=== PATIENT | female | born 1965 | race Caucasian/White ===

== ENCOUNTER → 2017-12-11 08:36 | Outpatient (CLI) | payer BC, SELFPAY ==
[2017-12-11 12:09] LABS: Absolute Lymphocyte Count 2.13 X10^3/ul (0.83-4.51); Absolute Neutrophil Count 4.8 X10^3/uL (2.0-7.7); Basophil# 0.04 X10^3/uL; Basophil% 0.5 % (0-1); Eosinophil# 0.14 X10^3/uL; Eosinophils% 1.9 % (0-5); Hematocrit 45.3 % (37-47); Hemoglobin 14.6 g/dl (12.0-15.0); Lymphocyte # 2.13 X10^3/ul (4.0); Lymphocyte % 28.2 % (19-41); Mean Corp Hgb Conc 32.2 g/gl (32-36); Mean Corpuscular Hgb 29.5 pg (27.0-32.0); Mean Corpuscular Volume 91.5 fL (81-99); Mean Platelet Vol. 10.8 fl (6.2-12.0); Monocyte# 0.45 X10^3/uL; Neutrophil # 4.78 X10^3/uL (2.7-7.7); Neutrophil % 63.3 % (47-70); Platelet Count 238 K/mm3 (150-450); RBC Distribution Width CV 13.4 % (11.6-14.6); RBC Distribution Width SD 44.4 fl (35.1-43.9); Red Blood Count 4.95 M/mm3 (4.2-5.4); White Blood Count 7.6 K/mm3 (4.4-11.0)
[2017-12-11 12:16] LABS: POSITIVE COUNT NO; POSITIVE DIFFERENTIAL NO; POSITIVE MORPHOLOGY NO
[2017-12-11 12:41] LABS: AST(SGOT) 14 U/L (15-37); Alanine Aminotransfer ALT/SGPT 39 U/L (13-56); Albumin, Serum 3.8 g/dL (3.2-5.0); Alkaline Phosphatase 122 U/L (45-117); Anion Gap 8 (5-15); BUN 13 mg/dL (7-18); BUN/Creat Ratio 18.2 RATIO (10-20); Calcium,Total 8.9 mg/dL (8.5-10.1); Chloride 104 mmol/L (98-107); Cholesterol 167 mg/dL (200); Creatinine, Serum 0.71 mg/dL (0.55-1.02); EST Glomerular Filtration Rate 91 mL/min (>60); Est Glom Filt Rate - Afr Amer 110 mL/min (>60); Globulin 3.8 g/dL (2.2-4.2); Glucose 97 mg/dL (74-106); High Density Lipoprotein 46 mg/dL; Potassium 4.2 mmol/L (3.5-5.1); Protein, Total 7.6 g/dL (6.4-8.2); Sodium Level 140 mmol/L (136-145); Thyroid Stim Hormone (TSH) 1.71 uIU/mL (0.358-3.74); Triglycerides 69 mg/dL; Very Low Density Lipoprotein 14 mg/dL (5-40)
== END ==
PROVIDERS: Family Provider Family Medicine; PCP Family Medicine; Visit Provider Family Medicine
DX: E78.5 Hyperlipidemia, unspecified (principal); E66.9 Obesity, unspecified
CPT/HCPCS: 36415; 80053; 80061; 84443; 85025

== ENCOUNTER → 2018-04-27 15:57 | Outpatient (CLI) | payer BC, SELFPAY | PROVIDERS: Family Provider Family Medicine; PCP Family Medicine; Visit Provider Family Medicine | DX: Z12.31 Encounter for screening mammogram for malignant neoplasm of breast (principal) | CPT/HCPCS: 77063; 77067 ==

== ENCOUNTER → 2019-03-22 08:15 | Outpatient (CLI) | payer BC, SELFPAY ==
[2019-03-22 12:50] LABS: AST(SGOT) 24 U/L (15-37); Absolute Lymphocyte Count 2.22 X10^3/ul (0.83-4.51); Absolute Neutrophil Count 4.9 X10^3/uL (2.0-7.7); Alanine Aminotransfer ALT/SGPT 45 U/L (13-56); Albumin, Serum 3.7 g/dL (3.2-5.0); Alkaline Phosphatase 138 U/L (45-117); Anion Gap 7 (5-15); BUN 13 mg/dL (7-18); BUN/Creat Ratio 16.5 RATIO (10-20); Basophil# 0.04 X10^3/uL; Basophil% 0.5 % (0-1); Calcium,Total 9.1 mg/dL (8.5-10.1); Chloride 105 mmol/L (98-107); Cholesterol 176 mg/dL (200); Creatinine, Serum 0.79 mg/dL (0.55-1.02); EST Glomerular Filtration Rate 81 mL/min (>60); Eosinophil# 0.16 X10^3/uL; Est Glom Filt Rate - Afr Amer 98 mL/min (>60); Globulin 3.7 g/dL (2.2-4.2); Glucose 104 mg/dL (74-106); Hematocrit 46.4 % (37-47); Hemoglobin 15.1 g/dl (12.0-15.0); High Density Lipoprotein 50 mg/dL; Lymphocyte # 2.22 X10^3/ul (4.0); Lymphocyte % 28.3 % (19-41); Mean Corp Hgb Conc 32.5 g/gl (32-36); Mean Corpuscular Hgb 29.1 pg (27.0-32.0); Mean Corpuscular Volume 89.4 fL (81-99); Mean Platelet Vol. 11.1 fl (6.2-12.0); Monocyte# 0.51 X10^3/uL; Monocyte% 6.5 % (0-10); Neutrophil # 4.89 X10^3/uL (2.7-7.7); Neutrophil % 62.4 % (47-70); Platelet Count 248 K/mm3 (150-450); Potassium 4.1 mmol/L (3.5-5.1); Protein, Total 7.4 g/dL (6.4-8.2); RBC Distribution Width CV 13.4 % (11.6-14.6); RBC Distribution Width SD 44.2 fl (35.1-43.9); Red Blood Count 5.19 M/mm3 (4.2-5.4); Sodium Level 138 mmol/L (136-145); Thyroid Stim Hormone (TSH) 1.86 uIU/mL (0.358-3.74); Triglycerides 76 mg/dL; Very Low Density Lipoprotein 15 mg/dL (5-40); White Blood Count 7.8 K/mm3 (4.4-11.0)
[2019-03-22 12:51] LABS: POSITIVE COUNT NO; POSITIVE DIFFERENTIAL NO; POSITIVE MORPHOLOGY NO
== END ==
PROVIDERS: PCP Family Medicine; Visit Provider Family Medicine
DX: Z00.00 Encounter for general adult medical examination without abnormal findings (principal); E78.5 Hyperlipidemia, unspecified; R53.83 Other fatigue
CPT/HCPCS: 36415; 80053; 80061; 84443; 85025

== ENCOUNTER → 2019-04-28 15:47 | Outpatient (CLI) | payer BC, SELFPAY ==
--- NOTE | 2019-04-28 15:50 | BI_ITS ---
MAMMOGRAPHY - BILATERAL SCREENING 3-D TOMOSYNTHESIS REASON FOR EXAM: Female, 53 years old. Bilateral Screening 3-D tomosynthesis PERTINENT HISTORY: Paternal grandmother and maternal aunt with breast cancer.. TECHNIQUE: 2-D mammograms and 3-D Tomosynthesis of the breast (s) were performed. CAD was performed. COMPARISON: 04/27/2018, 03/21/2017 FINDINGS: The breast composition is composed of scattered fibroglandular density. Stable postbiopsy change on the right side. Scattered benign calcifications are seen. No dense spiculated masses or suspicious microcalcifications are identified. No architectural distortion is identified. There is no skin thickening or retraction. There has been no significant change since the prior study. BI/SCREEN MAMM (CAD) W/JOSE BILAT IMPRESSION: No mammographic signs of malignancy. Routine yearly mammograms recommended. ASSESSMENT CATEGORY: BIRADS Category 2: Benign. A letter regarding these results will be sent to the patient by the facility within 30 days. FOLLOW UP RECOMMENDATION: Yearly follow up mammogram recommended. (A) Approximately 10% of breast cancers are not detected by mammography. A normal mammogram should not delay biopsy of a clinically suspicious abnormality. Electronically Signed: Jose Miguel Finnegan MD at 14:07 EDT Tel [phone], Service support ,
== END ==
PROVIDERS: Family Provider Family Medicine; PCP Family Medicine; Referring Provider Family Medicine; Visit Provider Family Medicine
DX: Z12.31 Encounter for screening mammogram for malignant neoplasm of breast (principal); Z80.3 Family history of malignant neoplasm of breast
CPT/HCPCS: 77063; 77067

== ENCOUNTER → 2020-05-03 15:46 | Outpatient (CLI) | payer BC, SELFPAY ==
--- NOTE | 2020-05-03 15:56 | BI_ITS ---
MAMMOGRAPHY - BILATERAL SCREENING REASON FOR EXAM: Female, 54 years old. Routine annual screening examination. PERTINENT HISTORY: Grandmother with breast cancer. Aunt with breast cancer. Prior right stereotactic breast biopsy and left excisional breast biopsy. TECHNIQUE: Digital bilateral breast jose (3D mammographic acquisition) in the CC and MLO projections. 2-D mediolateral oblique (MLO) and craniocaudad (CC) views of both breasts were obtained. CAD: Full Field Digital Mammography with Computer Added Detection was performed. COMPARISON: Comparison is made with prior study dated 04/28/2019 and 04/27/2018. FINDINGS: Breast Composition: There are scattered areas of fibroglandular density. There are no dominant masses or suspicious calcifications. Stable benign-appearing bilateral axillary lymph nodes. A tissue clip marker is seen in the central medial portion of the right breast. No other significant abnormalities are identified. There has been no significant change since the prior study. BI/SCREEN MAMM (CAD) W/JOSE BILAT IMPRESSION: Stable bilateral screening mammogram. Yearly follow-up mammogram recommended. (A) ASSESSMENT CATEGORY: BIRADS Category 2: Benign. A letter regarding these results will be sent to the patient by the facility within 30 days. Approximately 10% of breast cancers are not detected by mammography. A normal mammogram should not delay biopsy of a clinically suspicious abnormality. [id number] Electronically Signed: Sumit Butler, at 8:07 EDT , Service support ,
== END ==
PROVIDERS: PCP Family Medicine; Referring Provider Family Medicine; Visit Provider Family Medicine
DX: Z12.31 Encounter for screening mammogram for malignant neoplasm of breast (principal); Z80.3 Family history of malignant neoplasm of breast
CPT/HCPCS: 77063; 77067

== ENCOUNTER → 2021-05-11 15:26 | Outpatient (CLI) | payer BC, SELFPAY ==
--- NOTE | 2021-05-11 15:30 | BI_ITS ---
MAMMOGRAPHY - BILATERAL SCREENING REASON FOR EXAM: Female, 55 years old. Routine annual screening examination. PERTINENT HISTORY: Grandmother with breast cancer. Aunt with breast cancer. Prior right stereotactic breast biopsy. TECHNIQUE: Digital bilateral breast jose (3D mammographic acquisition) in the CC and MLO projections. 2-D mediolateral oblique (MLO) and craniocaudad (CC) views of both breasts were obtained. CAD: Full Field Digital Mammography with Computer Added Detection was performed. COMPARISON: Comparison is made with prior study 05/03/2020 and 04/28/2019. FINDINGS: Breast Composition: There are scattered areas of fibroglandular density. There are no dominant masses or suspicious calcifications. A tissue clip marker is once again seen in the central medial portion of the right breast. Stable benign-appearing right axillary lymph nodes. No other significant abnormalities are identified. There has been no significant change since the prior study. BI/SCRN MAMM (CAD)W/JOSE BILAT IMPRESSION: Stable bilateral screening mammogram. Yearly follow-up mammogram recommended. (A) ASSESSMENT CATEGORY: BIRADS Category 2: Benign. A letter regarding these results will be sent to the patient by the facility within 30 days. Approximately 10% of breast cancers are not detected by mammography. A normal mammogram should not delay biopsy of a clinically suspicious abnormality. [id number] Electronically Signed: Sumit Butler MD at 8:12 EDT , Service support ,
== END ==
PROVIDERS: PCP Family Medicine; Referring Provider Family Medicine; Visit Provider Family Medicine
DX: Z12.31 Encounter for screening mammogram for malignant neoplasm of breast (principal)
CPT/HCPCS: 77063; 77067

== ENCOUNTER → 2022-05-27 | Outpatient (CLI) | payer BC, SELFPAY ==
[2022-05-27 10:09] LABS: Absolute Lymphocyte Count 2.32 X10^3/uL (0.83-4.51); Absolute Neutrophil Count 4.6 X10^3/uL (2.0-7.7); Basophil# 0.05 X10^3/uL; Basophil% 0.7 % (0-1); Eosinophil# 0.15 X10^3/uL; Hematocrit 47.1 % (37-47); Hemoglobin 15.5 g/dL (12.0-15.0); Lymphocyte # 2.32 X10^3/ul (0.83-4.51); Lymphocyte % 30.5 % (19-41); Mean Corp Hgb Conc 32.9 g/dL (32-36); Mean Corpuscular Volume 91.1 fL (81-99); Mean Platelet Vol. 10.6 fl (6.2-12.0); Monocyte# 0.47 X10^3/uL; Monocyte% 6.2 % (0-10); NRBC Flagged by Analyzer 0 % (0-5); Neutrophil % 60.3 % (47-70); Platelet Count 228 K/mm3 (150-450); RBC Distribution Width CV 13.1 % (11.6-14.6); RBC Distribution Width SD 43.8 fl (35.1-43.9); Red Blood Count 5.17 M/mm3 (4.2-5.4); White Blood Count 7.6 K/mm3 (4.4-11.0)
[2022-05-27 11:17] LABS: ALB/GLOB Ratio 1.1 RATIO (0.9-2.4); AST(SGOT) 17 U/L (15-37); Alanine Aminotransfer ALT/SGPT 36 U/L (13-56); Albumin, Serum 3.8 g/dL (3.2-5.0); Alkaline Phosphatase 112 U/L (45-117); Anion Gap 9 (5-15); BUN 11 mg/dL (7-18); BUN/Creat Ratio 14.5 RATIO (10-20); Calcium,Total 9.3 mg/dL (8.5-10.1); Chloride 104 mmol/L (98-107); Cholesterol 173 mg/dL (200); Creatinine, Serum 0.76 mg/dL (0.55-1.02); EST Glomerular Filtration Rate 83 mL/min (>60); Est Glom Filt Rate - Afr Amer 101 mL/min (>60); Globulin 3.6 g/dL (2.2-4.2); Glucose 109 mg/dL (74-106); High Density Lipoprotein 50 mg/dL; Potassium 3.5 mmol/L (3.5-5.1); Protein, Total 7.4 g/dL (6.4-8.2); Sodium Level 139 mmol/L (136-145); Thyroid Stim Hormone (TSH) 2.27 uIU/mL (0.358-3.74); Triglycerides 66 mg/dL; Very Low Density Lipoprotein 13 mg/dL (5-40)
== END | disposition home or self-care (01) ==
LOC: MTLAB 07:49
PROVIDERS: PCP Family Medicine; Referring Provider Family Medicine; Visit Provider Family Medicine
DX: Z00.00 Encounter for general adult medical examination without abnormal findings (principal); R53.83 Other fatigue
CPT/HCPCS: 36415; 80053; 80061; 84443; 85025

== ENCOUNTER → 2022-05-30 | Outpatient (CLI) | payer BC, SELFPAY ==
--- NOTE | 2022-05-30 15:35 | BI_ITS ---
MAMMOGRAPHY - BILATERAL SCREENING 3-D TOMOSYNTHESIS REASON FOR EXAM: Female, 56 years old. SCREENING PERTINENT HISTORY: No significant family history. TECHNIQUE: 2-D mammograms and 3-D Tomosynthesis of the breast (s) were performed. CAD was performed. COMPARISON: 05/11/2021 FINDINGS: The breast composition is heterogeneously dense that can obscure small breast masses. Scattered benign calcifications are seen. No dense spiculated masses or suspicious microcalcifications are identified. No architectural distortion is identified. There is no skin thickening or retraction. There has been no significant change since the prior study. BI/SCRN MAMM (CAD)W/JOSE BILAT IMPRESSION: No mammographic signs of malignancy. Routine yearly mammograms recommended. ASSESSMENT CATEGORY: BIRADS Category 1: Negative. A letter regarding these results will be sent to the patient by the facility within 30 days. FOLLOW UP RECOMMENDATION: Yearly follow up mammogram recommended. (A) Approximately 10% of breast cancers are not detected by mammography. A normal mammogram should not delay biopsy of a clinically suspicious abnormality. Electronically Signed: Brando Craig MD at 16:22 EDT ,
== END | disposition home or self-care (01) ==
LOC: OPBI 15:34
PROVIDERS: PCP Family Medicine; Visit Provider Family Medicine
DX: Z12.31 Encounter for screening mammogram for malignant neoplasm of breast (principal)
CPT/HCPCS: 77063; 77067

== ENCOUNTER → 2023-06-05 | Outpatient (CLI) | payer BC, SELFPAY ==
--- NOTE | 2023-06-05 15:46 | BI_ITS ---
MAMMOGRAPHY - BILATERAL SCREENING REASON FOR EXAM: Female, 57 years old. Routine annual screening examination. PERTINENT HISTORY: Grandmother with breast cancer. Aunt with breast cancer. History of prior right stereotactic and excisional breast biopsies. TECHNIQUE: Digital bilateral breast jose (3D mammographic acquisition) in the CC and MLO projections. 2-D mediolateral oblique (MLO) and craniocaudad (CC) views of both breasts were obtained. CAD: Full Field Digital Mammography with Computer Added Detection was performed. COMPARISON: Comparison is made with prior study dated May 30, 2022 and May 11, 2021. FINDINGS: Breast Composition: There are scattered areas of fibroglandular density. There are no dominant masses or suspicious calcifications. Stable small benign-appearing bilateral axillary lymph nodes. A tissue clip marker is once again seen in the central medial aspect of the right breast. No other significant abnormalities are identified. There has been no significant change since the prior study. BI/SCRN MAMM (CAD)W/JOSE BILAT IMPRESSION: Stable bilateral screening mammogram. Yearly follow-up mammogram recommended. (A) ASSESSMENT CATEGORY: BIRADS Category 2: Benign. A letter regarding these results will be sent to the patient by the facility within 30 days. Approximately 10% of breast cancers are not detected by mammography. A normal mammogram should not delay biopsy of a clinically suspicious abnormality. [id number] Electronically Signed: Sumit Butler MD at 8:53 EDT ,
== END | disposition home or self-care (01) ==
LOC: OPBI 15:46
PROVIDERS: PCP Family Medicine; Referring Provider Family Medicine; Visit Provider Family Medicine
DX: Z12.31 Encounter for screening mammogram for malignant neoplasm of breast (principal)
CPT/HCPCS: 77063; 77067

== ENCOUNTER → 2023-09-29 | Outpatient (CLI) | payer BC, SELFPAY ==
[2023-09-29 12:18] LABS: Absolute Lymphocyte Count 2.53 X10^3/uL (0.83-4.51); Absolute Neutrophil Count 4.8 X10^3/uL (2.0-7.7); Basophil# 0.05 X10^3/uL; Basophil% 0.6 % (0-1); Eosinophil# 0.17 X10^3/uL; Eosinophils% 2.1 % (0-5); Hematocrit 47.1 % (37-47); Hemoglobin 14.9 g/dL (12.0-15.0); Lymphocyte # 2.53 X10^3/ul (0.83-4.51); Lymphocyte % 31.4 % (19-41); Mean Corp Hgb Conc 31.6 g/dL (32-36); Mean Corpuscular Hgb 29.5 pg (27.0-32.0); Mean Corpuscular Volume 93.3 fL (81-99); Mean Platelet Vol. 10.9 fl (6.2-12.0); Monocyte# 0.53 X10^3/uL; Monocyte% 6.6 % (0-10); NRBC Flagged by Analyzer 0 % (0-5); Neutrophil # 4.76 X10^3/uL (2.7-7.7); Neutrophil % 59.2 % (47-70); Platelet Count 245 K/mm3 (150-450); Red Blood Count 5.05 M/mm3 (4.2-5.4); White Blood Count 8.1 K/mm3 (4.4-11.0)
[2023-09-29 13:14] LABS: ALB/GLOB Ratio 1.1 RATIO (0.9-2.4); AST(SGOT) 21 U/L (15-37); Alanine Aminotransfer ALT/SGPT 28 U/L (13-56); Albumin, Serum 3.8 g/dL (3.2-5.0); Alkaline Phosphatase 117 U/L (45-117); Anion Gap 5 (5-15); BUN 11 mg/dL (7-18); BUN/Creat Ratio 16.6 RATIO (10-20); Calcium,Total 9.6 mg/dL (8.5-10.1); Chloride 105 mmol/L (98-107); Creatinine, Serum 0.66 mg/dL (0.55-1.02); EST Glomerular Filtration Rate 97 mL/min (>60); Est Glom Filt Rate - Afr Amer 117 mL/min (>60); Globulin 3.5 g/dL (2.2-4.2); Glucose 103 mg/dL (74-106); Protein, Total 7.3 g/dL (6.4-8.2); Sodium Level 138 mmol/L (136-145)
== END | disposition home or self-care (01) ==
LOC: BFHLAB 08:59
PROVIDERS: PCP Family Medicine; Visit Provider Family Medicine
DX: I10 Essential (primary) hypertension (principal)
CPT/HCPCS: 36415; 80053; 85025

== ENCOUNTER 2024-01-19 15:30 | Outpatient (RCR) | payer BC, SELFPAY ==
--- NOTE | 2023-11-19 15:09 | HP.OTEVAL ---
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 Date of Evaluation: 11/19/23 Occupational Therapist: VENKATESH Salas/Ras, CHT Subjective Subjective: This 58 year old female was see for OT eval with dx of right first carpometacarpal joint osteoarthritis, right thumb metacarpophlangeal joint instability and right thumb first carpometacarpal joint osteoarthritis- pt states symptom started about 1.5 years with injections without help- pt decided to have sx. DOS was on 10/07/2023 for a right CMC arthroplasty with tendon transfer and MCP Joint arthrodesis. pt states she has been limited with all ADLs and IADls due to being right hand dominate. pt states she would like to return to her PLOF. 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 pt states she would like to use her hand again to do all her ADls and IADls. ADLs Comments: pt right handed using left hand for all her ADLs and IADLS Pain righ t: Current Pain Intensity: 5 Pain Intensity Range: 3 and 7 ROM Wrist: right 40/25 left 65/60 CMC: right NT left 10 MP: right NT left 55 IP: right 10 left 60 Radial Abduction: right NT left NT Palmar Abduction: right NT left 45 Opposition: Kapandji opposition scale right NT left 10 ROM Comments: will test right CMC in 1 week MCP joint had arthrodesis Strength Medical Translator: right NT left 30# Lateral Pinch: right NT left 6# Tripod Pinch: right NT left 8# Sensation Sensation Comments: deneis Quick DASH-Disab of Arm,Shoulder& Hand Quick DASH Score: 65.0000 Goals Goal:100% adherence to protocol: Yes Comment: Dr. Pittman CMC arthroplasty guidelines Goal:Daily scar massage when approriate: Yes Goal:ROM equal to unaffected hand: Yes Comment: right wrist and IPJ / right MPJ is fused Goal:Medical Translator/Pinch strength at least 75% of unaffected hand: Yes Goal:No pain with affected hand use: Yes Goal:Full use of affected hand in daily activities including work: Yes Rehabilitation General Assessment: pt arrives s/p 6 weeks and 1 days s/p from a right first carpometacarpal joint arthroplasty with trapezium excision and ligament reconstruction and tendon interposition with FCR autograft and transfer. CMC arthroplasty with MCP joint arthrodesis. pt has surgical cast removed today and is in need of custom orthosis to provide support and protection while soft tissue structures are healing. Rehabilitation Potential: Good Anticipated Interventions Anticipated Interventions: A/AAROM/PROM, Strengthening, Scar Care, Triggerpoint Release, Desensitization, Sensory Retraining, Modalities, Orthoses, Joint Protection/Energy Conservation, Fine Motor Coord/Roland, Education re assistive Equipment, Education re Diagnosis and Home Program Visit Plan Frequency: 1x/Week Duration: 6 Weeks General Plan: s/p week 6 begin wrist ROM exercise and IP ROM Fabricate thumb spica orthosis- keep IPJ free Position wrist in 15* extension Maintain Neutral radiaoulnar deviation Place thumb in comfortable position of about 40*-50* palmar abduction keeping fingers free -encourage finger ROM short arch wrist ROM ( MPJ with fusion watch for any lateral stress on MPJ) Week 6-8 supported cmc with IP ROM use of comfort cool day tasks but orthosis at night and heavy tasks week 7-8 initiate CMC motion with wrist ROM and light strength of machinery cleaner and UB Week 10 Begin light isometric strengthening exercises 2x/day within pain tolerance Practice gripping abound objects of various circumferences in various positions with small orthosis for MCPJ in place Week 12 use hand-based orthosis only for high-demand activities Week 16 d/c use of orthosis if MCPJ is stable at 0* or greater in resting position (NO Hyperextension) TEXT: Thank you for the opportunity to evaluate your patient. For Medicare and Medicare HMO plans, please review the plan of care and approve it. It will need to be FAXED BACK to us at [phone] for Medicare purposes. Please let me know if there are questions or concerns regarding this plan of care. Physician Signature: Date:
--- NOTE | 2023-12-16 16:16 | HP.OTREVAL ---
Re-Evaluation Intro: RENA Peace, It has been my pleasure to treat JEANINE ROA over the last 5 visits for unilateral primary osteoarthritis 1st carpometacarpi join-. Please see the progress note below for an update on the occupational therapy plan of care! Subjective Subjective: pt arrives to session 10 weeks s/p from CMC arthroplasty with MP fusion pt states she is out of brace 90% of the time pt states still challenged with bilateral hand skills pt is left handed- pt is using right hand as tolerated as she is left handed. Objective Objective/Function: right ROM CMC flex 8* MP NT IP 25* right wrist 50/60 right customer operations associate strength 20# right lateral pinch 3# pt continues to struggle with skin sensitivity so therapist is hands off as to not cause pt to pass out... Pt BP likes to drop with pain or discomfort pt is working and is using left hand as much as rafita. pt is right hand dominate. pt continues to guarded with use to avoid discomfort. pt is out of brace at night only in while driving and as needed for laundry or other daily task. pt has initiated PRE to her tolerance: and has thumb stabilization ex as well. pt making progress. Plan Plan Frequency: 1x/Week Duration: 6 Weeks Goals Goals Patient Goals: Regain Mobility, Return to Work, Use Hand/Wrist/Arm Normally Again and Be More Independent in ADLS Goal:100% adherence to protocol: Yes Goal:Daily scar massage when approriate: Yes Goal:ROM equal to unaffected hand: Yes Goal:Traffic Signal Technician/Pinch strength at least 75% of unaffected hand: Yes Goal:No pain with affected hand use: Yes Goal:Full use of affected hand in daily activities including work: Yes Anticipated Interventions Anticipated Interventions Anticipated Interventions: A/AAROM/PROM, Strengthening, Scar Care, Triggerpoint Release, Desensitization, Sensory Retraining, Modalities, Orthoses, Joint Protection/Energy Conservation, Fine Motor Coord/Roland, Education re assistive Equipment, Education re Diagnosis and Home Program Re-Evaluation Ending Re-evaluation ending: Please do not hesitate to contact me at [phone] by phone or if you have questions or concerns regarding this new plan of care! Sincerely, Sadie Beltran, OTR/L, CHT
--- NOTE | 2024-04-14 11:12 | HP.OT.NRP ---
Patient Information Patient Information: JEANINE ROA was seen in my office for initial evaluation on 11/19/23. The following Plan of Care was established for this patient: POC Established Initial Frequency: 1x/Week Initial Duration: 6 Weeks Anticipated Interventions Anticipated Interventions: A/AAROM/PROM, Strengthening, Scar Care, Triggerpoint Release, Desensitization, Sensory Retraining, Modalities, Orthoses, Joint Protection/Energy Conservation, Fine Motor Coord/Roland, Education re assistive Equipment, Education re Diagnosis and Home Program Last Seen Last Seen: This patient was last seen in our office 01/19/24. Pertinent comments regarding their Occupational therapy will appear below: pt was seen for OT following CMC arthroplasty. pt continued to struggle with scar sensitivity at last session. therapist cont. to advise in scar desensitization. Pt made gains with ROM and strength. pt at this time has not scheduled further therapy sessions and is now D/C due to time lapse in services. At this point I will be discontinuing this patient from occupational therapy. I would be happy to see this patient again in the future if found appropriate by the physician. Thank you! Sadie Beltran, OTR/L, CHT
== END 2024-01-19 19:00 | disposition home or self-care (01) ==
LOC: OT 15:30
PROVIDERS: PCP Family Medicine; Referring Provider Physician Assistant Surgical; Visit Provider Physician Assistant Surgical
DX: M18.11 Unilateral primary osteoarthritis of first carpometacarpal joint, right hand (principal)
CPT/HCPCS: 97110; 97166; 97530; 97760

== ENCOUNTER → 2024-06-07 | Outpatient (CLI) | payer BC, SELFPAY ==
--- NOTE | 2024-06-07 15:40 | BI_ITS ---
MAMMOGRAPHY - BILATERAL SCREENING REASON FOR EXAM: Female, 58 years old. Routine annual screening examination. PERTINENT HISTORY: Grandmother with breast cancer. Aunt with breast cancer. History of remote right excisional breast biopsy and right stereotactic breast biopsy. TECHNIQUE: Digital bilateral breast jose (3D mammographic acquisition) in the CC and MLO projections. 2-D mediolateral oblique (MLO) and craniocaudad (CC) views of both breasts were obtained. CAD: Full Field Digital Mammography with Computer Added Detection was performed. COMPARISON: Comparison is made with prior study May 28, 2023 and May 30, 2022. FINDINGS: Breast Composition: There are scattered areas of fibroglandular density. There are no dominant masses or suspicious calcifications. A tissue clip marker is seen in the central medial aspect of the right breast stable bilateral fat containing axillary lymph nodes. No other significant abnormalities are identified. There has been no significant change since the prior study. BI/SCRN MAMM (CAD)W/JOSE BILAT IMPRESSION: Stable bilateral screening mammogram. Yearly follow-up mammogram recommended. (A) ASSESSMENT CATEGORY: BIRADS Category 2: Benign. A letter regarding these results will be sent to the patient by the facility within 30 days. Approximately 10% of breast cancers are not detected by mammography. A normal mammogram should not delay biopsy of a clinically suspicious abnormality. [id number] Electronically Signed: Sumit Butler MD at 8:35 EDT ,
== END | disposition home or self-care (01) ==
LOC: OPBI 15:39
PROVIDERS: PCP Family Medicine; Referring Provider Family Medicine; Visit Provider Family Medicine
DX: Z12.31 Encounter for screening mammogram for malignant neoplasm of breast (principal); Z80.3 Family history of malignant neoplasm of breast
CPT/HCPCS: 77063; 77067

== ENCOUNTER → 2024-06-18 | Outpatient (CLI) | payer BC, SELFPAY ==
[2024-06-18 12:25] LABS: Absolute Lymphocyte Count 2.74 X10^3/uL (0.83-4.51); Absolute Neutrophil Count 4.4 X10^3/uL (2.0-7.7); Basophil# 0.05 X10^3/uL; Basophil% 0.6 % (0-1); Eosinophil# 0.23 X10^3/uL; Eosinophils% 2.9 % (0-5); Hematocrit 44.6 % (37-47); Hemoglobin 14.5 g/dL (12.0-15.0); Lymphocyte # 2.74 X10^3/ul (0.83-4.51); Lymphocyte % 34.1 % (19-41); Mean Corp Hgb Conc 32.5 g/dL (32-36); Mean Corpuscular Hgb 29.7 pg (27.0-32.0); Mean Corpuscular Volume 91.2 fL (81-99); Mean Platelet Vol. 10.5 fl (6.2-12.0); Monocyte# 0.55 X10^3/uL; Monocyte% 6.8 % (0-10); NRBC Flagged by Analyzer 0 % (0-5); Neutrophil # 4.43 X10^3/uL (2.7-7.7); Neutrophil % 55.2 % (47-70); Platelet Count 233 K/mm3 (150-450); RBC Distribution Width CV 13.1 % (11.6-14.6); RBC Distribution Width SD 44.2 fl (35.1-43.9); Red Blood Count 4.89 M/mm3 (4.2-5.4)
[2024-06-18 13:01] LABS: Anion Gap 5 (5-15); BUN 14 mg/dL (7-18); BUN/Creat Ratio 20.9 RATIO (10-20); Calcium,Total 9.6 mg/dL (8.5-10.1); Chloride 106 mmol/L (98-107); Creatinine, Serum 0.67 mg/dL (0.55-1.02); EST Glomerular Filtration Rate 95 mL/min (>60); Est Glom Filt Rate - Afr Amer 116 mL/min (>60); Glucose 124 mg/dL (74-106); Potassium 3.8 mmol/L (3.5-5.1); Sodium Level 138 mmol/L (136-145)
== END | disposition home or self-care (01) ==
LOC: MTLAB 10:12
PROVIDERS: PCP Family Medicine; Referring Provider Student in an Organized Health Care Education/Training Program; Visit Provider Student in an Organized Health Care Education/Training Program
DX: Z01.818 Encounter for other preprocedural examination (principal)
CPT/HCPCS: 36415; 80048; 85025

== ENCOUNTER → 2024-07-16 | Outpatient (CLI) | payer BC, SELFPAY ==
[2024-07-16 13:15] LABS: AST(SGOT) 16 U/L (15-37); Alanine Aminotransfer ALT/SGPT 42 U/L (13-56); Albumin, Serum 3.7 g/dL (3.2-5.0); Alkaline Phosphatase 150 U/L (45-117); Bilirubin, Direct 0.14 mg/dL (0.00-0.30); Globulin 3.9 g/dL (2.2-4.2); Protein, Total 7.6 g/dL (6.4-8.2)
== END | disposition home or self-care (01) ==
LOC: MTLAB 09:49
PROVIDERS: PCP Family Medicine; Referring Provider Student in an Organized Health Care Education/Training Program; Visit Provider Student in an Organized Health Care Education/Training Program
DX: B35.1 Tinea unguium (principal)
CPT/HCPCS: 36415; 80076

== ENCOUNTER 2024-09-07 15:00 | Outpatient (RCR) | payer BC, SELFPAY ==
--- NOTE | 2024-08-24 07:00 | HP.OTEVAL ---
Patient's Visit Information Visit Information Visit Information: JEAINNE ROA is a 59 year old F, referred to Occupational Therapy by RENA Peace, with a diagnosis of OA left CMC. Date of Evaluation: 08/17/24 Occupational Therapist: VENKATESH Salas/Ras, CHT Subjective Subjective: This 59 year old female was seen for OT eval with dx of left CMC OA. pt underwent left CMC arthroplasty on . pt arrives 5 weeks and 6 days s/p in need of custom orthosis to provide protection and support while pt recovers from her recent sx. pt reports limitations with all ADls and IADls at this time.- happy to have cast off and start moving forward Pain left hand: Current Pain Intensity: 2 Pain Intensity Range: 4 and 5 ROM Wrist: right 65/45 left 40/0 CMC: right 25 left 10 MP: right fusion IP: right 40* left 5 Palmar Abduction: right 45 NT ROM Comments: will test other ROM at later date Strength Director Of Medical Education: right 50# left NT Lateral Pinch: right 7# left NT Sensation Sensation Comments: denies Quick DASH-Disab of Arm,Shoulder& Hand Quick DASH Score: 66.6650 Goals Goal:100% adherence to protocol: Yes Comment: cmc arthroplasty Goal:Daily scar massage when approriate: Yes Goal:ROM equal to unaffected hand: Yes Goal:Director Of Medical Education/Pinch strength at least 75% of unaffected hand: Yes Goal:No pain with affected hand use: Yes Goal:Full use of affected hand in daily activities including work: Yes Goal:Decrease scar hypersensitivity: Yes Other Goal: orthosis use: pt will demo IND doffing/donning of custom orthosis by end of 1st session. Rehabilitation General Assessment: pt arrives pt arrives 5 weeks and 6 days s/p in need of custom orthosis to provide protection and support while pt recovers from her recent sx. pt reports limitations with all ADls and IADls at this time.- happy to have cast off and start moving forward. Pt demo need for skilled OT eval 1-2x week for 4-6 weeks to return pt to her PLOF. Today therapist yasmine. custom orthosis to provide protection and support while newly healing structures heal. Therapist ed. pt on wrist short arch ROM, tendon glides and supported cmc with IP and MP ROM. pt demo understanding and agree to POC. Rehabilitation Potential: Good Anticipated Interventions Anticipated Interventions: A/AAROM/PROM, Strengthening, Scar Care, Triggerpoint Release, Desensitization, Modalities, Orthoses, Joint Protection/Energy Conservation, Ergonomic Education, Education re assistive Equipment, Education re Diagnosis and Home Program Visit Plan Frequency: 1-2x /Week Duration: 4-6 Weeks General Plan: orthosis initiate wrist short arch wrist ROM scar mtg MP and IP ROM for 1 week than initiate CMC motion TEXT: Thank you for the opportunity to evaluate your patient. For Medicare and Medicare HMO plans, please review the plan of care and approve it. It will need to be FAXED BACK to us at [phone] for Medicare purposes. Please let me know if there are questions or concerns regarding this plan of care. Physician Signature: Date:
--- NOTE | 2024-11-17 13:28 | HP.OTDCNRP_ITS ---
Patient Information Patient Information: JEANINE ROA was seen in my office for initial evaluation on 08/17/24. The following Plan of Care was established for this patient: POC Established Initial Frequency: 1-2x /Week Initial Duration: 4-6 Weeks Plan: cont with thumb stabilization 1# lift light intranet specialist Anticipated Interventions Anticipated Interventions: A/AAROM/PROM, Strengthening, Scar Care, Triggerpoint Release, Desensitization, Modalities, Orthoses, Joint Protection/Energy Conservation, Ergonomic Education, Education re assistive Equipment, Education re Diagnosis and Home Program Last Seen Last Seen: This patient was last seen in our office 09/07/24. Pertinent comments regarding their Occupational therapy will appear below: pt was seen for 3 OT sessions. Pt progressed well in therapy due to insurance pt cont. with HEP. pt now d/c due to time lapse in service. At this point I will be discontinuing this patient from occupational therapy. I would be happy to see this patient again in the future if found appropriate by the physician. Thank you! Sadie Beltran, OTR/L, CHT
== END 2024-09-07 19:00 | disposition home or self-care (01) ==
LOC: OT 15:00
PROVIDERS: PCP Family Medicine; Referring Provider Physician Assistant Surgical; Visit Provider Physician Assistant Surgical
DX: M18.12 Unilateral primary osteoarthritis of first carpometacarpal joint, left hand (principal); M25.342 Other instability, left hand; G56.31 Lesion of radial nerve, right upper limb
CPT/HCPCS: 97110; 97166; 97530

== ENCOUNTER → 2024-10-06 | Outpatient (CLI) | payer BC, SELFPAY ==
[2024-10-06 10:54] LABS: AST(SGOT) 16 U/L (15-37); Alanine Aminotransfer ALT/SGPT 26 U/L (13-56); Albumin, Serum 3.7 g/dL (3.2-5.0); Alkaline Phosphatase 125 U/L (45-117); Bilirubin, Direct 0.14 mg/dL (0.00-0.30); Globulin 3.5 g/dL (2.2-4.2); Protein, Total 7.2 g/dL (6.4-8.2)
== END | disposition home or self-care (01) ==
LOC: MTLAB 07:02
PROVIDERS: PCP Family Medicine; Referring Provider Student in an Organized Health Care Education/Training Program; Visit Provider Student in an Organized Health Care Education/Training Program
DX: B35.1 Tinea unguium (principal)
CPT/HCPCS: 36415; 80076

== ENCOUNTER → 2025-06-08 | Outpatient (CLI) | payer BC, SELFPAY ==
--- NOTE | 2025-06-08 15:22 | BI_ITS ---
EXAM: SCRN MAMM (CAD)W/JOSE BILAT DATE: 06/08/2025 CLINICAL HISTORY: F, Age 59 y/o , SCREENING Routine screening TECHNIQUE: Procedure Code: BISMWCADBTOM Modality: MG Procedure: SCRN MAMM (CAD)W/JOSE BILAT COMPARISON: Prior exam(s) dated 06/07/2024. FINDINGS: TISSUE DENSITY: There are scattered areas of fibroglandular density. Bilateral Breast Mammographic Findings: No significant masses, calcifications or other abnormalities are identified. Stable scattered punctate calcifications in both breasts, no interval change BI/SCRN MAMM (CAD)W/JOSE BILAT IMPRESSION: Stable screening mammogram OVERALL FINAL ASSESSMENT BI-RADS 2: BENIGN RECOMMENDATION: Routine annual follow-up in 1 Year Additional Recommendation none A letter with findings and recommendations will be mailed to the patient. Reading Location: [id number]
--- NOTE | 2025-06-08 15:22 | BI_ITS ---
EXAM: SCRN MAMM (CAD)W/JOSE BILAT DATE: 06/08/2025 CLINICAL HISTORY: F, Age 59 y/o , SCREENING Routine screening TECHNIQUE: Procedure Code: BISMWCADBTOM Modality: MG Procedure: SCRN MAMM (CAD)W/JOSE BILAT COMPARISON: Prior exam(s) dated 06/07/2024. FINDINGS: TISSUE DENSITY: There are scattered areas of fibroglandular density. Bilateral Breast Mammographic Findings: No significant masses, calcifications or other abnormalities are identified. Stable scattered punctate calcifications in both breasts, no interval change BI/SCRN MAMM (CAD)W/JOSE BILAT IMPRESSION: Stable screening mammogram OVERALL FINAL ASSESSMENT BI-RADS 2: BENIGN RECOMMENDATION: Routine annual follow-up in 1 Year Additional Recommendation none A letter with findings and recommendations will be mailed to the patient. Reading Location: [id number]
== END | disposition home or self-care (01) ==
LOC: OPBI 15:07
PROVIDERS: PCP Family Medicine; Referring Provider Family Medicine; Visit Provider Family Medicine
DX: Z12.31 Encounter for screening mammogram for malignant neoplasm of breast (principal)
CPT/HCPCS: 77063; 77067

== ENCOUNTER → 2025-08-11 | Outpatient (CLI) | payer BC, SELFPAY ==
[2025-08-11 15:30] LABS: Hematocrit 47.0 % (37-47); Hemoglobin 15.0 g/dL (12.0-15.0); Immature Granulocytes Count 0.030 X10^3/uL (0.0-0.0); Mean Corp Hgb Conc 31.9 g/dL (32-36); Mean Corpuscular Volume 92.9 fL (81-99); Mean Platelet Vol. 10.5 fl (6.2-12.0); NRBC Flagged by Analyzer 0 % (0-5); Platelet Count 256 K/mm3 (150-450); RBC Distribution Width CV 12.7 % (11.6-14.6); RBC Distribution Width SD 43.5 fl (35.1-43.9); Red Blood Count 5.06 M/mm3 (4.2-5.4); White Blood Count 9.1 K/mm3 (4.4-11.0)
[2025-08-11 15:42] LABS: Anion Gap 10 (5-15); BUN 14 mg/dL (4-19); BUN/Creat Ratio 19.9 RATIO (10-20); Calcium,Total 9.5 mg/dL (7.6-11.0); Carbon Dioxide 24.8 mmol/L (21.0-32.0); Chloride 102 mmol/L (98-108); Glucose 119 mg/dL (70-99); Potassium 4.1 mmol/L (3.3-5.1)
== END | disposition home or self-care (01) ==
PROVIDERS: PCP Family Medicine; Visit Provider Student in an Organized Health Care Education/Training Program
DX: Z01.818 Encounter for other preprocedural examination (principal)
CPT/HCPCS: 36415; 80048; 85025